=== PATIENT | male | born 1990 | race Caucasian/White ===

== ENCOUNTER 2025-08-01 23:09 | Emergency (ER) | payer OTHER, SELFPAY ==
[2025-08-01 23:25] VITALS: BP 163/90
[2025-08-02 00:26] VITALS: BP 114/79; BMI 23.4
--- NOTE | 2025-08-02 01:08 | ED.MUSCINJ ---
HPI-Injury
General
Chief Complaint: Musculo-Skeletal Complaint
Source: patient and significant other
Exam Limitations: none
Time Seen by Provider: 08/01/25 23:34
Nursing documentation reviewed up to this point in time: agreed with
History of Present Illness-Injury
Initial Injury comments:
Note:
CHIEF COMPLAINT(S)
Laceration with possible bone exposure from a hockey injury.
HISTORY OF PRESENT ILLNESS
The patient is a 35-year-old male who presented after sustaining an injury while playing hockey. He reports the sensation of something sticking out from the site of injury, which he is concerned may be bone or tissue. The patient mentioned bleeding
from the area, although he is uncertain about the extent of the injury.
Disposition:
SUMMARY OF ENCOUNTER
A 35-year-old male presented to the emergency department after injuring his left pinky finger while playing ice hockey. He was wearing a glove at the time of the injury. The patient had a 1 cm laceration with a very small, non-viable skin flap. The
wound was thoroughly cleaned and soaked, then closed using Steri-Strips and skin glue. A splint was applied to ensure the Steri-Strips remained intact.
DISPOSITION
Discharge.
ASSESSMENT
The patient sustained a small laceration on his left pinky finger from an ice hockey injury. No acute osseous abnormality was detected on the X-ray.
PLAN
The patient will start taking cephalexin (Keflex) to prevent infection, and he will be given a note for light duty at work.
INDEPENDENT REVIEW OF LABS AND INTERPRETATION OF TESTS
My independent interpretation of the X-ray shows no acute osseous abnormality.
PATIENT EDUCATION AND COUNSELING
The patient was educated on wound care, the importance of keeping the splint intact, and signs of infection to monitor for, such as increased redness, swelling, or discharge from the wound.
FOLLOW-UP INSTRUCTIONS
The patient is advised to monitor the wound and follow up with their primary care provider if there are any signs of infection or if the injury does not heal properly.
MEDICATION RECONCILIATION
Cephalexin (Keflex) was prescribed to the patient.
MEDICAL DECISION MAKING
-Complexity of Data Reviewed: Differential diagnosis considered includes laceration with possible bone fracture or exposure.
-Data:
Category 1: My independent interpretation of the X-ray shows no acute osseous abnormality.
-Risk: Prescription medication was prescribed (cephalexin).
DIAGNOSIS
Laceration without foreign body, left pinky finger (ICD-10: S61.210A).
Skin Exam
Laceration
Left Fifth Finger:
Length in cm: 1
Orientation: stellate
Type of Laceration: complex
Any active bleeding?: low grade venous oozing
Distal skin color and temperature: normal-warm & good color
Normal distal neurovascular exam: Yes
Range of motion: full
Phy Exam
Physical Exam
Physical Exam:
.
General Physical Exam
General Presentation: well appearing and mild distress
General age: appears stated age
General Skin: warm and dry
General Habitus: normal
General Mental: alert
Skin Exam
Skin Exam: normal color and warm/dry
Psychiatric Exam
Psychiatric Exam: normal mood/affect and anxious
Injury Course
Orders/Labs/Results
Orders:
Orders
08/01/25 23:35
Hand, Left 3 View [CR Hand - Left Min 3 Views] Urgent
Comment:
Reason For Exam: trauma
Procedures
Laceration Closure
Left Fifth Finger:
Status of Wound: clean
Size of Wound in cm: 1
Description of Wound Edges: ragged and flap-poorly vascularized
Preparation: cleaned with saline and cleaned with Betadine
Revision/Debridement: minor revision
Wound exploration: explored to base- no FB
Type of Closure: single layer closure and Dermabond-skin glue
Additional information:
Steri-Strips were placed over Dermabond
*Pulse Oximetry
SaO2: 99
Oxygen Mode of Delivery: Room air
Patient hypoxic: no
*Critical Care Note
Total Time (30-74mins, 75-104mins- exclusive of procedures): Not Applicable
ED Attending Note
-
Portions of this chart may have been created with voice recognition software.� Occasional wrong word or��sound alike� substitutions may have occurred due to the inherent limitations of voice recognition software.
Discharge Plan
Departure
Patient Disposition: Home (Routine Discharge)
Date of Disposition: 08/02/25
Time of Disposition: 01:08
Patient with high blood pressure during this ER visit?: Yes
Condition: Good
Discharge Problem:
Finger laceration
Instructions: Wound care - ED (DC), Finger Tip Laceration with Steristrips
Prescriptions:
New
cephalexin 500 mg capsule
500 mg PO BID 10 Days Qty: 20 0RF
Referrals:
Shauna Madsen DO [Family Provider, Family Practice]
Stand Alone Forms: Return to Work
Activity Restrictions/Additional Instructions:
Thank You for choosing [facility].
It was a pleasure meeting you and taking part in your care. We hope for your continued healing and wellness.
Please read discharge instructions in their entirety. However, they are for general education and may not describe your exact diagnosis at discharge. Information on your ER visit and medical conditions were discussed with you along with appropriate
follow up information...
If indicated, please take your medications as instructed and indicated on discharge paperwork.
Please schedule a follow up appointment as directed. Call to schedule an appointment
Please return to the emergency department with ANY change in, persisting, or worsening of symptoms. If any of your symptoms do not improve, or persist, or become more severe within 6-12 hours, please return to the emergency department for further
care.
Please return to the emergency department if you develop a headache, neck pain/stiffness, fever greater than 100.4F, chest pain, shortness of breath, persistent nausea, vomiting, slurred speech, difficulty walking, numbness/tingling, weakness, signs
of infection or any other symptoms that are worrisome to you.
If you have any questions or concerns please do not hesitate to call the Hospital at .
Interventions
Interventions:
*Risk Screen - Suicide Last Done: 08/01/25 23:25
*General Assessment Last Done: 08/02/25 00:27
*Neglect/Abuse Screening Last Done: 08/01/25 23:25
*ED- Fall Risk Assessment Last Done: 08/02/25 00:27
*ED COVID-19 Vaccine History Last Done: 08/02/25 00:27
*ED Influenza Vaccine History Last Done: 08/02/25 00:27
*Nursing Disposition Last Done: 08/02/25 01:19
ED-Musculoskeletal Assessment Last Done: 08/02/25 00:47
Discharge Date and Time
Discharge Date/Time: 08/02/25 01:20
Print Language: BHUTANESE
[2025-08-02 01:19] VITALS: BP 126/87
== END 2025-08-02 01:20 | disposition home or self-care (01) ==
LOC: EMR 23:09
PROVIDERS: EMERGENCY PHYSICIAN Student in an Organized Health Care Education/Training Program; FAMILY PHYSICIAN Family Medicine
DX: S61.217A Laceration without foreign body of left little finger without damage to nail, initial encounter (principal); W19.XXXA Unspecified fall, initial encounter; Y93.22 Activity, ice hockey; Y92.330 Ice skating rink (indoor) (outdoor) as the place of occurrence of the external cause; R03.0 Elevated blood-pressure reading, without diagnosis of hypertension
CPT/HCPCS: 99283; 12001; 73130